=== PATIENT | female | born 1970 ===

== ENCOUNTER → 2018-12-24 | Outpatient (CLI) | payer OTHER, BC | LOC: LAB 18:00 → LAB SHORT 18:00 | DX: R30.0 Dysuria (principal) | CPT/HCPCS: 87086 ==

== ENCOUNTER 2019-03-25 07:43 | Day surgery (SDC) | payer OTHER, BC ==
[~2019-03-25] VITALS: Ht 177.8 cm; Wt 73.1 kg
== END 2019-03-25 09:36 | disposition home or self-care (01) ==
LOC: ORSCSDS 07:43
PROVIDERS: Internal Medicine Gastroenterology
PROC: 0DBN8ZX Excision of Sigmoid Colon, Via Natural or Artificial Opening Endoscopic, Diagnostic (ICD-10-PCS; principal; 2019-03-25 09:00)
DX: Z12.11 Encounter for screening for malignant neoplasm of colon (principal); K63.5 Polyp of colon; K64.8 Other hemorrhoids
CPT/HCPCS: 88305; J2250; J2704; J7120

== ENCOUNTER → 2023-04-07 | Outpatient (CLI) | payer OTHER, BC ==
[~2023-04-07] MED LIST: CONEST1.25 PO; ESTEST.62T; OMEP20ER; PROM25 PO; Percocet 5-3251 EACH PO
== END | disposition home or self-care (01) ==
LOC: LAB SHORT 07:05 → LAB 07:05
DX: E78.49 Other hyperlipidemia (principal); K21.9 Gastro-esophageal reflux disease without esophagitis; M79.10 Myalgia, unspecified site; F41.1 Generalized anxiety disorder; M54.59 Other low back pain; N95.1 Menopausal and female climacteric states; R10.816 Epigastric abdominal tenderness; R21 Rash and other nonspecific skin eruption; R73.01 Impaired fasting glucose; Z79.890 Hormone replacement therapy
CPT/HCPCS: 85651